=== PATIENT | male | born 1970 | race Caucasian/White ===

== ENCOUNTER 2020-02-05 07:50 | Emergency (ER) | payer MEDICAID ==
--- NOTE | 2020-02-05 08:24 | EDM.PDOC ---
ED HPI GENERAL MEDICAL PROBLEM - General Chief Complaint: Skin Complaint Stated Complaint: WOUND ON LEFT FOREARM Time Seen by Provider: 02/05/20 08:10 Source of Information: Reports: Patient History Limitations: Reports: No Limitations - History of Present Illness INITIAL COMMENTS - FREE TEXT/NARRATIVE: 49-year-old male scraped his left forearm a week ago on a plastic garbage container and the healing has been very slow so he wanted it checked. No fevers or chills. Onset: Sudden Duration: Day(s): (7 days ago) Location: Reports: Upper Extremity, Left Associated Symptoms: Reports: No Other Symptoms Treatments COUNTY ATTORNEY: Reports: Other (see below) (Patient is continually putting topical Neosporin on the wound) - Related Data Allergies Allergy/AdvReac Type Severity Reaction Status Date / Time No Known Allergies Allergy Verified 02/05/20 08:04 Home Meds: Home Meds NK [No Known Home Meds] 02/05/20 [History] Past Medical History Musculoskeletal History: Reports: Other (See Below) Other Musculoskeletal History: shoulder, broken collarbone - Past Surgical History HEENT Surgical History: Reports: Tonsillectomy Social & Family History - Tobacco Use Smoking Status *Q: Current Every Day Smoker Years of Tobacco use: 30 Packs/Tins Daily: 0.5 - Alcohol Use Number of Drinks Per Day: 2 - Recreational Drug Use Recreational Drug Use: No ED ROS GENERAL - Review of Systems Review Of Systems: See Below Constitutional: Denies: Fever, Chills Respiratory: Denies: Shortness of Breath GI/Abdominal: Denies: Nausea, Vomiting Neurological: Reports: No Symptoms ED EXAM, SKIN/RASH Exam: See Below Exam Limited By: No Limitations General Appearance: Alert, No Apparent Distress Respiratory/Chest: No Respiratory Distress Extremities: Other (Exam is otherwise limited to the left arm. Patient has a 2- 1/2 x 3 cm moist greasy scab covered with neomycin ointment on the extensor surface of the left forearm. There is some tenderness to palpation and some slight erythema around this but no significant streaks or warmth to the forearm. ) Course - Vital Signs Last Recorded V/S: Last Vital Signs Temp 97.7 F 02/05/20 08:05 Pulse 90 02/05/20 08:05 Resp 16 02/05/20 08:05 BP 137/96 H 02/05/20 08:05 Pulse Ox 99 05/29/20 08:05 - Re-Assessments/Exams Free Text/Narrative Re-Assessment/Exam: 02/05/20 08:23 This infection does not appear to be infected at this time and I encouraged the patient to allow it to dry up and heal, just washing it during showers or bathing. He does need to keep it covered to keep it clean, but I think the continuous topical ointment is starting to irritate the area. Departure - Departure Time of Disposition: 08:30 Disposition: Home, Self-Care 01 Clinical Impression: Abrasion of left forearm, initial encounter - Discharge Information Instructions: Abrasion Referrals: Deo Langley CONSUMER EDUCATION SPECIALIST [Primary Care Provider] - Forms: ED Department Discharge Care Plan Goals: Keep wound covered and clean while healing, there is no need to continue putting antibiotic ointment on the area. Recheck if worsening such as increased redness, warmth, drainage or swelling. Sepsis Event Note - Evaluation Sepsis Screening Result: No Definite Risk - Focused Exam Vital Signs: Vital Signs Temp Pulse Resp BP Pulse Ox 02/05/20 08:05 97.7 F 90 16 137/96 H 99 02/05/20 08:02 97.7 F 90 16 137/96 H 99 Date Exam was Performed: 02/05/20 Time Exam was Performed: 08:56
== END 2020-02-05 08:31 | disposition home or self-care (01) ==
LOC: JP.ED 07:50
DX: S50.812A Abrasion of left forearm, initial encounter (principal); F17.210 Nicotine dependence, cigarettes, uncomplicated; W26.9XXA Contact with unspecified sharp object(s), initial encounter
CPT/HCPCS: 99282

== ENCOUNTER 2020-07-03 19:08 | Emergency (ER) | payer OTHER ==
[2020-07-03] MEDS ORDERED: Bacitracin Oint 1 GM U/D Packet TOP ONE (20:01)
--- NOTE | 2020-07-03 20:06 | EDM.PDOC ---
ED HPI GENERAL MEDICAL PROBLEM - General Chief Complaint: Head Injury Stated Complaint: PASSED OUT Time Seen by Provider: 07/03/20 19:42 Source of Information: Reports: Patient, Family, RN Notes Reviewed History Limitations: Reports: No Limitations - History of Present Illness INITIAL COMMENTS - FREE TEXT/NARRATIVE: Jack presents today for complaints of fall today around 3pm when he felt dizzy, fell and struck the right eyebrow. He developed a cut. The fall was not witness. He denies LOC. Jack lives with his parents and his mother reports that he was a little confused after he fell. Jack denies LOC. He denies chest pain, SOB, dizziness, palpitations, cough, fever chills, nausea, vomiting, change in bowel/bladder or other concerns. 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 - Related Data Allergies Allergy/AdvReac Type Severity Reaction Status Date / Time No Known Allergies Allergy Verified 07/03/20 19:25 Home Meds: Home Meds NK [No Known Home Meds] 02/05/20 [History] Past Medical History Musculoskeletal History: Reports: Other (See Below) Other Musculoskeletal History: shoulder, broken collarbone - Past Surgical History HEENT Surgical History: Reports: Tonsillectomy Social & Family History - Tobacco Use Tobacco Use Status *Q: Current Every Day Tobacco User Years of Tobacco use: 30 Packs/Tins Daily: 0.3 ED ROS GENERAL - Review of Systems Review Of Systems: See Below Constitutional: Reports: No Symptoms HEENT: Reports: Other (Pain to right eye brow with contusion) Respiratory: Reports: No Symptoms Cardiovascular: Reports: No Symptoms Endocrine: Reports: No Symptoms GI/Abdominal: Reports: No Symptoms : Reports: No Symptoms Musculoskeletal: Reports: No Symptoms Skin: Reports: Other (raised contusion with ecchymosis, abrasion right eyebrow) Neurological: Reports: No Symptoms Psychiatric: Reports: No Symptoms Hematologic/Lymphatic: Reports: No Symptoms Immunologic: Reports: No Symptoms ED EXAM, HEAD INJURY - Physical Exam Exam: See Below Exam Limited By: No Limitations General Appearance: Alert, WD/WN, No Apparent Distress Head: Other (raised contusion right eyebrow, edema, abrasion, no bleeding, scab noted without signs of infection. ) Nexus Criteria: No: Posterior, Midline Cervical Tenderness, Evidence of Intoxication, Altered Level of Consciousness, Focal Neurological Deficit, Painful Distraction Injuries Eyes: Bilateral Eye: EOMI, Normal Inspection, PERRL Ears: Normal External Exam, Normal Canal, Hearing Grossly Normal, Normal TMs Nose: Normal Inspection, Normal Mucousa, No Blood Throat/Mouth: Normal Inspection, Normal Lips, Normal Gums, Normal Oropharynx, Normal Voice, No Airway Compromise Neck: Non-Tender, Full Range of Motion, Normal Alignment, Normal Inspection. No: Muscle Spasm, Spinous Processes Tender, Tenderness, Tender Lateral Respiratory: No Respiratory Distress, Lungs Clear, Normal Breath Sounds, No Accessory Muscle Use, Chest Non-Tender. No: Crackles, Rales, Rhonchi, Wheezing Cardiovascular: Normal Peripheral Pulses, Regular Rate, Rhythm, No Edema, No Gallop, No Murmur, No Rub Back Exam: Normal Inspection, Full Range of Motion. 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 No: Motor Weakness, Sensory Deficit DTR: 4+: Patella (R), Patella (L) Skin: Normal Color, Warm/Dry (with excetion to contusion right eye brow as described above.) - [place] Coma Score Best Eye Response ([place]): (4) Open Spontaneously Best Verbal Response ([place]): (5) Oriented Best Motor Response ([place]): (6) Obeys Commands [place] Total: 15 Course - Vital Signs Last Recorded V/S: Last Vital Signs Temp 35.9 C L 07/03/20 19:39 Pulse 96 07/03/20 19:39 Resp 14 07/03/20 19:39 BP 103/74 07/03/20 19:39 Pulse Ox 99 07/03/20 19:39 - Orders/Labs/Meds Meds: Medications Discontinued Medications Generic Name Dose Route Start Last Admin Trade Name Freq PRN Reason Stop Dose Admin Bacitracin 1 dose 07/03/20 20:01 07/03/20 20:15 Bacitracin Oint 1 Gm TOP 07/03/20 20:02 1 dose ONETIME ONE Administration - Re-Assessments/Exams Free Text/Narrative Re-Assessment/Exam: Right eyebrow cleansed, no open laceration, scabbing noted. Bacitracin and bandaid applied. Patient tolerated well. 07/03/20 Upon completion of assessment, patient advised we can do further evaluation with lab work, IV fluids and cardiac work up. Patient declined, stated "I do not want anything else done, just take care of my eyebrow". Patien t asked again and advised against not working up dizziness and falling, he declined. He was instructed to work on hydration with water and use of gatorade. Return for any worsening, issues or concerns. Patient verbalized understanding. Departure - Departure Time of Disposition: 20:12 Disposition: Home, Self-Care 01 Condition: Good Clinical Impression: Contusion of right eyebrow, Fall - Discharge Information Instructions: [facility], Adult Referrals: PCP,None [Primary Care Provider] - Forms: ED Department Discharge Additional Instructions: You have been evaluated for fall, contusion right eyebrow. You may use ice to the eye brow to help with swelling. Use bacitracin to the area twice a day until healed. Return for any worsening, issues or concerns. You may be suffering from dehydration, work on drinking 4 to 5, 20oz bottles of water a day and 1 or 2 gatorades to help with hydration and electrolytes. You were offered further work-up and lab work but declined. It would be best for you to see your primary within 3 days for a check up and evaluation of your dizziness due to your frequent falls. Return to the emergency room for any issues or concerns. Sepsis Event Note (ED) - Evaluation Sepsis Screening Result: No Definite Risk - Focused Exam Vital Signs: Vital Signs Temp Pulse Resp BP Pulse Ox 07/03/20 19:39 35.9 C L 96 14 103/74 99 - Assessment/Plan Assessment:: Contusion of right eyebrow Fall Plan: Patient evaluated for fall, contusion right eyebrow. He may use ice to the eye brow to help with swelling. Use bacitracin to the area twice a day until healed. Return for any worsening, issues or concerns. He may be suffering from dehydration, work on drinking 4 to 5, 20oz bottles of water a day and 1 or 2 gatorades to help with hydration and electrolytes. He was offered further work-up and lab work but declined. It would be best for him to see his primary within 3 days for a check up and evaluation of dizziness due to frequent falls. Return to the emergency room for any issues or concerns.
== END 2020-07-03 20:31 | disposition home or self-care (01) ==
LOC: JP.ED 19:08
DX: S00.11XA Contusion of right eyelid and periocular area, initial encounter (principal); F17.210 Nicotine dependence, cigarettes, uncomplicated; W22.8XXA Striking against or struck by other objects, initial encounter
CPT/HCPCS: 99283

== ENCOUNTER 2021-03-24 13:19 | Emergency (ER) | payer OTHER, SELFPAY ==
[2021-03-24] MEDS ORDERED: MVI, Adult with Vitamin K 10 ML, Thiamine 100 MG, Folic Acid 1 MG, Magnesium Sulfate 3 ... IV SCH ×5 (15:15)
--- NOTE | 2021-03-24 15:32 | CT ---
Head wo Cont CLINICAL HISTORY: Seizure, paresthesias COMPARISON: MR brain 2017 TECHNIQUE: Transverse scans were obtained from the base of the skull through the vertex without IV contrast on a multislice, multidetector CT scanner. Auto dosage reduction and iterative reconstruction techniques employed. FINDINGS: No focal abnormal parenchymal density is identified. There is no mass effect, hemorrhage, or extraaxial collection. There is some mild scattered periventricular and subcortical lucency. The basal cisterns and sulci over the convexities are prominent. The ventricles are prominent. IMPRESSION: No acute intracranial process Atrophic changes Chronic ischemic microvascular changes
--- NOTE | 2021-03-24 16:55 | EDM.PDOC ---
ED HPI GENERAL MEDICAL PROBLEM - General Chief Complaint: Neuro Symptoms/Deficits Stated Complaint: FEET ARE NUMB, RIGHT HAND IS SHAKING Time Seen by Provider: 03/24/21 15:00 Source of Information: Reports: Patient, Family History Limitations: Reports: No Limitations - History of Present Illness INITIAL COMMENTS - FREE TEXT/NARRATIVE: 50-year-old male originally came in to be seen because of worsening lower extremity numbness especially his feet, and some shaking of his right hand. After a while waiting in the emergency room to be seen, he went out to have a cigarette, went to the bathroom twice, and the second time he came back from the bathroom he collapsed and had a generalized seizure. He was urgently evaluated in the waiting area, and transported back into the emergency room on a gurney. He had a classic postictal type of presentation, with confusion, somewhat foaming at the mouth and unresponsive. Over the course of 20 to 30 minutes he stabilized and regained his mental awareness and alertness. He has been having bad muscle cramps at night especially, he has been working hard, and claims only have 1-2 beers nightly. He eats poorly. Patient was incontinent of stool during the seizure Onset: Unknown/Unsure Associated Symptoms: Reports: Confusion (Patient had postictal confusion), Malaise, Weakness, Other (Has had problems with insomnia over the past several weeks). Denies: Chest Pain, Cough, Shortness of Breath - Related Data Allergies Allergy/AdvReac Type Severity Reaction Status Date / Time No Known Allergies Allergy Verified 03/24/21 14:34 Home Meds: Home Meds NK [No Known Home Meds] 02/05/20 [History] Past Medical History Cardiovascular History: Reports: None Respiratory History: Reports: None Gastrointestinal History: Reports: None Genitourinary History: Reports: None Musculoskeletal History: Reports: Other (See Below) Other Musculoskeletal History: shoulder, broken collarbone Neurological History: Reports: Neuropathy, Peripheral Psychiatric History: Reports: None Endocrine/Metabolic History: Reports: None Hematologic History: Reports: None Immunologic History: Reports: None Oncologic (Cancer) History: Reports: None Dermatologic History: Reports: None - Infectious Disease History Infectious Disease History: Reports: Chicken Pox - Past Surgical History HEENT Surgical History: Reports: Adenoidectomy, Tonsillectomy Social & Family History - Tobacco Use Years of Tobacco use: 30 Packs/Tins Daily: 0.5 - Recreational Drug Use Recreational Drug Use: No ED ROS GENERAL - Review of Systems Review Of Systems: See Below Constitutional: Reports: Malaise, Decreased Appetite, Weight Loss. Denies: Fever, Chills HEENT: Denies: Rhinitis, Vision Change Respiratory: Denies: Shortness of Breath Cardiovascular: Denies: Chest Pain GI/Abdominal: Reports: Decreased Appetite. Denies: Diarrhea, Nausea, Vomiting : Reports: No Symptoms Musculoskeletal: Reports: Muscle Pain (Frequent muscle cramps, sometimes generalized but mostly in his legs) Skin: Reports: Bruising (Bruises easily, bruises on his left forearm and ready complexion), Other (Hyperemia of the face, aris complexion) Neurological: Reports: Confusion (Initially confused after his suture but was answering questions normally within 1/2-hour) Psychiatric: Reports: No Symptoms ED EXAM, GENERAL - Physical Exam Exam: See Below Exam Limited By: No Limitations General Appearance: Alert, No Apparent Distress Eye Exam: Bilateral Eye: Normal Inspection Ears: Normal TMs Throat/Mouth: Other (No oral mucosal or tongue injury from the seizure) Head: Atraumatic Neck: Supple, Non-Tender Respiratory/Chest: No Respiratory Distress, Lungs Clear Cardiovascular: Regular Rate, Rhythm. No: Tachycardia Extremities: Limited Range of Motion (Bruising is present on the left forearm, patient has no peripheral edema or muscle tenderness to palpation) Neurological: Alert, Oriented, No Motor/Sensory Deficits Psychiatric: Depressed Mood, Flat Affect Skin Exam: Warm, Dry, Other (Aris complexion of the face, bruises on the left forearm) Course - Vital Signs Last Recorded V/S: Last Vital Signs Temp 98.2 F 03/24/21 14:43 Pulse 77 03/24/21 17:02 Resp 16 03/24/21 17:02 BP 164/91 H 03/24/21 17:02 Pulse Ox 95 03/24/21 17:02 - Orders/Labs/Meds Labs: Laboratory Tests 03/24/21 03/24/21 03/24/21 Range/Units 14:25 14:30 14:30 WBC 11.9 H (4.5-11.0) K/uL RBC 4.24 L (4.30-5.90) M/uL Hgb 15.3 H (12.0-15.0) g/dL Hct 44.2 (40.0-54.0) % MCV 104 H (80-98) fL MCH 36 H (27-31) pg MCHC 35 (32-36) % Plt Count 145 L (150-400) K/uL Neut % (Auto) 53.1 (36-66) % Lymph % (Auto) 32.2 (24-44) % Leon % (Auto) 12.9 H (2-6) % Eos % (Auto) 1.3 L (2-4) % Baso % (Auto) 0.5 (0-1) % Sodium 139 L (140-148) mmol/L Potassium 3.5 L (3.6-5.2) mmol/L Chloride 99 L (100-108) mmol/L Carbon Dioxide 17 L (21-32) mmol/L Anion Gap 26.5 H (5.0-14.0) mmol/L BUN 3 L (7-18) mg/dL Creatinine 1.2 (0.8-1.3) mg/dL Est Cr Clr Drug Dosing TNP Estimated GFR (MDRD) > 60 (>60) Glucose 137 H (74-106) mg/dL Calcium 9.1 (8.5-10.1) mg/dL Total Bilirubin 1.4 H (0.2-1.0) mg/dL AST 135 H (15-37) U/L ALT 43 (12-78) U/L Alkaline Phosphatase 108 (46-116) U/L Total Protein 7.4 (6.4-8.2) g/dL Albumin 3.6 (3.4-5.0) g/dL Globulin 3.8 H (2.3-3.5) g/dL Albumin/Globulin Ratio 1.0 L (1.2-2.2) Vitamin B12 582 (193-986) pg/ml Folate 15.6 (8.6-58.9) ng/ml Ethyl Alcohol mg/dL 03/24/21 Range/Units 14:30 WBC (4.5-11.0) K/uL RBC (4.30-5.90) M/uL Hgb (12.0-15.0) g/dL Hct (40.0-54.0) % MCV (80-98) fL MCH (27-31) pg MCHC (32-36) % Plt Count (150-400) K/uL Neut % (Auto) (36-66) % Lymph % (Auto) (24-44) % Leon % (Auto) (2-6) % Eos % (Auto) (2-4) % Baso % (Auto) (0-1) % Sodium (140-148) mmol/L Potassium (3.6-5.2) mmol/L Chloride (100-108) mmol/L Carbon Dioxide (21-32) mmol/L Anion Gap (5.0-14.0) mmol/L BUN (7-18) mg/dL Creatinine (0.8-1.3) mg/dL Est Cr Clr Drug Dosing Estimated GFR (MDRD) (>60) Glucose (74-106) mg/dL Calcium (8.5-10.1) mg/dL Total Bilirubin (0.2-1.0) mg/dL AST (15-37) U/L ALT (12-78) U/L Alkaline Phosphatase (46-116) U/L Total Protein (6.4-8.2) g/dL Albumin (3.4-5.0) g/dL Globulin (2.3-3.5) g/dL Albumin/Globulin Ratio (1.2-2.2) Vitamin B12 (193-986) pg/ml Folate (8.6-58.9) ng/ml Ethyl Alcohol < 3 mg/dL Meds: Medications Discontinued Medications Generic Name Dose Route Start Last Admin Trade Name Freq PRN Reason Stop Dose Admin Levetiracetam 750 mg/ Sodium 107.5 mls @ 400 mls/hr 03/24/21 14:51 03/24/21 15:16 Chloride IV 03/24/21 15:05 400 mls/hr ONETIME ONE Administration Multivitamins/Minerals 10 ml/ 1,017.2 mls @ 999 mls/hr 03/24/21 15:15 03/24/21 15:31 Thiamine HCl 100 mg/ Folic IV 999 mls/hr Acid 1 mg/ Magnesium Sulfate 3 ASDIRECTED JUDY Administration gm/ Sodium Chloride - Re-Assessments/Exams Free Text/Narrative Re-Assessment/Exam: 03/24/21 16:56 Confronted the patient and the parents about possible chronic alcohol intake, they adamantly insisted he was drinking 1-[address] of the head was done which showed chronic changes only, CBC showed an MCV of 104, white count was 11.4, hemoglobin 15.3. Platelets just below the normal level at 143,000 03/24/21 16:57 An IV was started, patient was given 750 mg of IV Keppra prior to CT scan and lab evaluation. AST was also elevated, bilirubin elevated, electrolytes were otherwise generally normal. A banana bag was given over the course of an hour a nd a half. Patient remained stable. Folate and vitamin B12 levels were added, these will be available for his recheck, peripheral smear was unable to be done because sent out is not for another 72 hours and it needs to be done within 48. Patient insisted he did not need detox. He will be discharged to his parents care, encouraged to stay hydrated, eat well, and avoid any alcohol intake. I will start him on Neurontin 300 mg twice daily, I also gave him a note not to work for 1 week and he is not to drive. I want him to be reassessed by his primary provider next week, they can call Saturday morning for an appointment time. He can return this weekend if he redevelops any symptoms. Departure - Departure Time of Disposition: 17:23 Disposition: Home, Self-Care 01 Clinical Impression: Seizure, Paresthesias - Discharge Information Instructions: Seizure, Adult Referrals: Richard Elizabeth MD [Primary Care Provider] - Forms: ED Department Discharge Care Plan Goals: Stay hydrated, eat well, no alcohol, no driving, and no work for the next 7 days. Take Neurontin twice daily as prescribed, you can start tonight. Call the clinic on Saturday for a follow-up appointment Saturday or of next week with your primary provider, return to the emergency room at any time if symptoms recur or you develop other concerns. Sepsis Event Note (ED) - Evaluation Sepsis Screening Result: No Definite Risk
== END 2021-03-24 17:23 | disposition home or self-care (01) ==
LOC: JP.ED 13:19
DX: R56.9 Unspecified convulsions (principal); R20.2 Paresthesia of skin; F17.210 Nicotine dependence, cigarettes, uncomplicated
CPT/HCPCS: 36415; 70450; 80053; 80307; 82607; 82746; 85025; 96365; 96368; 99285; J1953; J3411; J3475; J7030; J3490

== ENCOUNTER 2022-02-23 07:49 | Day surgery (SDC) | payer OTHER ==
[~2022-02-23 07:49] MED LIST: Midazolam 1 MG/ML 2 ML SDV ONE; Propofol 200 MG/20 ML SDV ONE; fentaNYL 100 MCG/2 ML SDV ONE
[2022-02-23] MEDS ORDERED: Acetaminophen 500 MG Tab PO ONE (08:15)
[2022-02-23] MEDS ORDERED: Dextrose 5%-Lactated Ringers 1,000 ML IV SCH (08:30)
[2022-02-23] MEDS ORDERED: ceFAZolin 2 GM in Sodium Chloride 0.9% 100 ML IV ONE (09:00)
[2022-02-23] MEDS ORDERED: Bupivacaine 0.5% 50 ML MDV ONE (10:03)
[2022-02-23] MEDS ORDERED: Lidocaine 1% with EPINEPHrine 1:100,000 50 ML MDV ONE (10:03)
[2022-02-23] MEDS ORDERED: Propofol 200 MG/20 ML SDV ONE (10:53)
[2022-02-23] MEDS ORDERED: Bacitracin Oint 1 GM U/D Packet ONE (11:01)
== END 2022-02-23 12:04 | disposition home or self-care (01) ==
LOC: JP.SDS 07:49
PROVIDERS: ATTEND Surgery
DX: L72.0 Epidermal cyst (principal); F17.200 Nicotine dependence, unspecified, uncomplicated
CPT/HCPCS: 88304; A9270-GY; J0690; J2250; J2704; J3010; J3490; J7121

== ENCOUNTER 2022-09-18 18:22 | Emergency (ER) | payer OTHER ==
[2022-09-18] MEDS ORDERED: Diphtheria,Pertussis(Acell),Tetanus Vaccine 0.5 ML Syringe IM ONE (18:32)
[2022-09-18 19:05] LABS: ESTIMATED GFR 106 mL/min (>60)
[2022-09-18] MEDS ORDERED: Bacitracin Oint 1 GM U/D Packet TOP ONE (19:32)
[2022-09-18] MEDS ORDERED: LORazepam 1 MG Tab PO ONE (21:32)
== END 2022-09-18 21:54 | disposition home or self-care (01) ==
LOC: JP.ED 18:22
DX: S06.0XAA Concussion with loss of consciousness status unknown, initial encounter (principal); S01.112A Laceration without foreign body of left eyelid and periocular area, initial encounter; M54.2 Cervicalgia; F10.920 Alcohol use, unspecified with intoxication, uncomplicated; Y90.8 Blood alcohol level of 240 mg/100 ml or more; W10.8XXA Fall (on) (from) other stairs and steps, initial encounter
CPT/HCPCS: 36415; 70450; 72125; 73110-RT; 76377; 80053; 80305-QW; 80307; 81001; 85025; 99283; 99285; A9270-GY

== ENCOUNTER 2024-06-11 06:14 | Day surgery (SDC) | payer MEDICAID, OTHER ==
[2024-06-11] MEDS: Sodium Chloride 0.9% 1,000 ML IV SCH (07:06)
[2024-06-11] MEDS ORDERED: fentaNYL 100 MCG/2 ML SDV ONE (07:38)
[2024-06-11] MEDS ORDERED: Midazolam 1 MG/ML 2 ML SDV ONE (07:38)
[2024-06-11] MEDS ORDERED: Propofol 200 MG/20 ML SDV ONE (07:38)
== END 2024-06-11 09:38 | disposition home or self-care (01) ==
LOC: JP.SDS 06:14
PROVIDERS: ATTEND Surgery
DX: Z12.11 Encounter for screening for malignant neoplasm of colon (principal); D12.5 Benign neoplasm of sigmoid colon; K29.50 Unspecified chronic gastritis without bleeding; K57.30 Diverticulosis of large intestine without perforation or abscess without bleeding
CPT/HCPCS: 00813-QZ; J2250; J2704; J3010; J7030

== ENCOUNTER 2025-07-05 07:15 | Day surgery (SDC) | payer MEDICAID ==
[2025-07-05] MEDS ORDERED: Propofol 200 MG/20 ML SDV ONE ×2 (07:48→09:22)
[2025-07-05] MEDS ORDERED: Midazolam 1 MG/ML 2 ML SDV ONE (07:48)
[2025-07-05] MEDS ORDERED: fentaNYL 50 MCG/ML SDV ONE (07:48)
[2025-07-05] MEDS: Lactated Ringers 1,000 ML IV SCH (07:58)
== END 2025-07-05 10:57 | disposition home or self-care (01) ==
LOC: JP.SDS 07:15
PROVIDERS: ATTEND Surgery
DX: Z12.11 Encounter for screening for malignant neoplasm of colon (principal); K57.30 Diverticulosis of large intestine without perforation or abscess without bleeding; K29.80 Duodenitis without bleeding; K22.89 Other specified disease of esophagus
CPT/HCPCS: 00813; 43239; 45378; J2250; J2704; J3010; J7120